=== PATIENT | male | born 1970 | race Caucasian/White ===

== ENCOUNTER 2020-07-01 10:53 | Outpatient (CLI) | payer OTHER ==
--- NOTE | 2020-07-01 11:22 | RAD ---
PA CHEST AND RIGHT RIBS 4 VIEWS: Date: 07/01/2020 HISTORY: Right-sided rib pain. FINDINGS: Heart size and mediastinum are within normal limits. Lungs are clear of any infiltrative process. I d o not appreciate any rib fractures. No lytic or blastic bone changes. IMPRESSION: Unremarkable right ribs. POS: ARCELIA
== END 2020-07-01 10:54 | disposition home or self-care (01) ==
LOC: BICRAD 10:53
PROVIDERS: ATTEND Family Medicine
DX: R07.81 Pleurodynia (principal)

== ENCOUNTER 2020-07-26 09:42 | Outpatient (CLI) | payer BC, OTHER ==
[2020-07-26 14:19] LABS: #Basophils 0.1 thou/uL (0.0-0.2); #Eosinphils 0.1 thou/uL (0.0-0.7); #Lymphocytes 2.6 thou/uL (1.20-3.40); #Monocytes 0.7 thou/uL (0.11-0.59); #Neutrophils 4.5 thou/uL (1.40-6.50); %Basophils 1.1 % (0.0-1.0); %Eosinophils 1.1 % (0.0-10.0); %Lymphocytes 32.5 % (21.0-51.0); %Monocytes 8.5 % (0.0-10.0); %Neutrophils 56.9 % (42.0-75.0); Hemoglobin 16.8 g/dL (14.0-18.0); Mean Corpuscular HGB CONC 33.9 g/dL (32.0-36.0); Mean Corpuscular Hemoglobin 30.3 pg (27.0-31.0); Mean Corpuscular Volume 89.6 fL (78.0-98.0); Mean Platelet Volume 9.7 fL (7.4-10.4); Platelet Count 194 thou/uL (130-400); RBC Distribution Width 11.1 % (11.5-14.5); Red Blood Cell (RBC) Count 5.53 mill/uL (4.70-6.10)
[2020-07-26 15:02] LABS: Anion Gap 16 mmol/L (10-20); BUN (Urea Nitrogen) 15 mg/dL (8.9-20.6); Calc. Creatinine Clearance 0 mL/min (70-130); Calcium 9.8 mg/dL (7.8-10.44); Carbon Dioxide 25 mmol/L (22-29); Chloride 102 mmol/L (98-107); Estimated GFR-MDRD 66; Glucose 99 mg/dL (70-105); Sodium 138 mmol/L (136-145)
--- NOTE | 2020-07-26 18:10 | EKG ---
Test Reason : Blood Pressure : / mmHG Vent. Rate : 069 BPM Atrial Rate : 069 BPM P-R Int : 164 ms QRS Dur : 082 ms QT Int : 372 ms P-R-T Axes : 066 025 059 degrees QTc Int : 398 ms Normal sinus rhythm with sinus arrhythmia Normal ECG No previous ECGs available Confirmed by DR. Luis MONTAGUE ([id number]) on 07/26/2020 6:10:31 PM Referred By: KESHA Confirmed By:DR. Luis MONTAGUE
[2020-07-27 15:36] LABS: SARS-CoV-2 MS2 Positive; SARS-CoV-2 N Gene Negative; SARS-CoV-2 S Gene Negative; SARS-CoV-2 by NAA Not Detected (NotDetected); SARS-CoV-2 orf1ab Negative
== END 2020-07-26 09:43 | disposition home or self-care (01) ==
LOC: LABBT 09:42
PROVIDERS: ATTEND Specialist
DX: Z01.812 Encounter for preprocedural laboratory examination (principal); K40.90 Unilateral inguinal hernia, without obstruction or gangrene, not specified as recurrent; Z20.828 Contact with and (suspected) exposure to other viral communicable diseases
CPT/HCPCS: 80048; 85025; 87635; 93005; 93010; U0003

== ENCOUNTER 2020-07-30 06:59 | Day surgery (SDC) | payer BC ==
[2020-07-27 11:20] VITALS: BMI 26.2
--- NOTE | 2020-07-29 09:48 | HP ---
HISTORY OF PRESENT ILLNESS: Keenan Arias, 49-year-old male patient, beverage sales consultant, Antony Stone, has noticed a bulge in his left groin for the last several weeks. He saw Dr. Chris Baron, who confirmed a left inguinal hernia. The patient denies having any pain, although he wants to repair this as he notes the bulge. On exam, he was found to have a right inguinal hernia protruding on Valsalva and plan is to repair the right side if appreciated during robot laparoscopic mesh repair of the left. In addition, the patient has perineal skin tags that we will remove. ALLERGIES: NONE. HABITS: Tobacco none. Alcohol rarely. MEDICATIONS: 1. Valacyclovir. 2. Pepcid. 3. Cialis. 4. Atorvastatin. PAST SURGICAL HISTORY: Noncontributory. PAST MEDICAL HISTORY: GERD. FAMILY HISTORY: Noncontributory. REVIEW OF SYSTEMS: Ten-point noncontributory. PHYSICAL EXAMINATION: VITAL SIGNS: Weight 213 pounds, height 6 feet 3 inches, 26 BMI. Blood pressure 136/87, heart rate 62, temperature 98 degrees. HEAD, EYES, EARS, NOSE, AND THROAT: Unremarkable. LUNGS: Clear to auscultation. CARDIAC: Regular rate and rhythm without murmur or gallop. ABDOMEN: Soft, nontender. EXTREMITIES: Unremarkable. GENITOURINARY: Perineal skin tags, three in number. Testicles normal. Left groin hernia on standing, enlarged on Valsalva. Right groin inguinal hernia appreciated on Valsalva, protruding through the external ring. ASSESSMENT AND PLAN: Large left inguinal hernia, probably early right inguinal hernia. Recommend robot mesh repair of left inguinal hernia and right inguinal hernia if verified robotically. Would also recommend excision of perineal skin tags. He understands risks and benefits and consents. Procedure explained to him. Job ID: [id number]
[2020-07-30] MEDS ORDERED: Gabapentin 300 MG CAP ONE (07:48)
[2020-07-30] MEDS ORDERED: Acetaminophen 500 MG TAB ONE (07:48)
[2020-07-30] MEDS ORDERED: Ketorolac Tromethamine 30 MG/ML VIAL ONE (07:48)
[2020-07-30] MEDS ORDERED: Midazolam HCl 2 mg/2 ml Vial ONE (08:42)
[2020-07-30] MEDS ORDERED: Fentanyl 250 MCG/5 ML VIAL ONE (09:06)
[2020-07-30] MEDS ORDERED: Bupivacaine/Epinephrine 0.25% 30 ML VIAL ONE ×2 (09:47→10:34)
[2020-07-30] MEDS ORDERED: PROPOFOL 200 MG/20 ML VIAL ONE (10:07)
[2020-07-30] MEDS ORDERED: Lidocaine 1% PF 5 ML VIAL ONE (10:07)
[2020-07-30] MEDS ORDERED: Ondansetron PF 4 MG/2 ML Vial ONE (10:07)
[2020-07-30] MEDS ORDERED: Glycopyrrolate 0.2 MG/ML 5 ML SYRINGE ONE (10:07)
[2020-07-30] MEDS ORDERED: Dexamethasone 20 MG/5 ML VIAL ONE (10:07)
[2020-07-30] MEDS ORDERED: Rocuronium Bromide 10 MG/ML (10ML VIAL) ONE (10:07)
--- NOTE | 2020-07-30 12:30 | OP ---
DATE OF PROCEDURE: 07/30/2020 PREOPERATIVE DIAGNOSES: Left inguinal hernia in the scrotum, perineal skin tag, possible right inguinal hernia. POSTOPERATIVE DIAGNOSES: bilateral inguinal hernias, left larger than right; and perineal skin tags. PROCEDURES PERFORMED: Robot laparoscopic large mesh repair of bilateral inguinal hernias, left larger than right, 3D Bard Max mesh used. Excision of perineal skin tags, 1.5 cm incision, Dermabond used. ANESTHESIA: General, local 0.25% Marcaine with epinephrine 30 mL. DESCRIPTION OF PROCEDURE: The patient was taken to the operating room, where under general anesthesia, abdomen was clipped of hair, prepared with ChloraPrep and draped in routine fashion. Local anesthetic was infiltrated in the skin and subcutaneous tissue about all port sites. Supraumbilical incision to left of midline, incision made, pneumoperitoneum to 15 mmHg obtained with Veress needle, replaced with an 11 balloon port and video laparoscope inserted. Bilateral far lateral incision was made and 8 mm ports placed. Robot was docked, and robot/laparoscopic inguinal hernia repair was undertaken. Large left inguinal hernia noted. Smaller right inguinal hernia noted. Peritoneal flaps dissected free bilaterally from the anterior superior iliac spine toward the midline on both sides, dissecting free Dilan ligament, visualizing the cord structures, dissecting the peritoneal sac off the cord structures for at least 8 cm and dissecting laterally. 3D Bard Max large mesh placed on the left and then on the right, securing it each side to Dilan ligament with 2-0 Vicryl suture and to the anterior abdominal wall lateral to the inferior epigastric vessels bilaterally. Once mesh was properly positioned and secured, the peritoneal flap closed with continuous suture of #3-0 V-Loc suture. Good hemostasis had been noted. All needles retrieved. Good hernia repair appreciated, pneumoperitoneum and all instruments were removed. Anterior rectus fascia left of midline, supraumbilical, approximated with 0 Vicryl, UR needle, and skin incision approximated with 4-0 Monocryl subdermal and [place] glue applied. The patient placed in a frog-leg position and he had a perineal tag just to the left of midline. This was prepared with alcohol and excised and closed with Dermabond. The patient tolerated the procedure well. Job ID: [id number]
[2020-07-30] MEDS ORDERED: HYDROcodone/Acetaminophen 5/325 mg Tablet ONE (13:57)
== END 2020-07-30 15:35 | disposition home or self-care (01) ==
LOC: SDC 06:59
PROVIDERS: ATTEND Specialist
PROC: 0YUA4JZ Supplement Bilateral Inguinal Region with Synthetic Substitute, Percutaneous Endoscopic Approach (ICD-10-PCS; principal; 2020-07-30)
PROC: 0HB9XZZ Excision of Perineum Skin, External Approach (ICD-10-PCS; principal; 2020-07-30)
DX: K40.90 Unilateral inguinal hernia, without obstruction or gangrene, not specified as recurrent (principal); K64.4 Residual hemorrhoidal skin tags; Z79.899 Other long term (current) drug therapy
CPT/HCPCS: 88304; C1781; J0690; J1100; J1885; J2250; J2405; J2704; J3010

== ENCOUNTER 2020-08-06 08:07 | Emergency (ER) | payer BC, OTHER ==
[2020-08-06] MEDS ORDERED: Ondansetron PF 4 MG/2 ML Vial ONE (08:24)
[2020-08-06] MEDS ORDERED: Morphine 4 MG/ML VIAL ONE (08:24)
[2020-08-06 08:44] LABS: #Basophils 0.1 thou/uL (0.0-0.2); #Eosinphils 0.2 thou/uL (0.0-0.7); #Monocytes 1.1 thou/uL (0.11-0.59); #Neutrophils 7.6 thou/uL (1.40-6.50); %Basophils 0.6 % (0.0-1.0); %Eosinophils 1.9 % (0.0-10.0); %Lymphocytes 18.1 % (21.0-51.0); %Monocytes 9.6 % (0.0-10.0); %Neutrophils 69.8 % (42.0-75.0); Hemoglobin 15.5 g/dL (14.0-18.0); Mean Corpuscular HGB CONC 33.7 g/dL (32.0-36.0); Mean Corpuscular Volume 88.9 fL (78.0-98.0); Mean Platelet Volume 8.7 fL (7.4-10.4); Platelet Count 226 thou/uL (130-400); RBC Distribution Width 10.9 % (11.5-14.5); Red Blood Cell (RBC) Count 5.16 mill/uL (4.70-6.10); White Blood Cell (WBC) Count 10.9 thou/uL (4.8-10.8)
--- NOTE | 2020-08-06 09:08 | CT ---
CT ABDOMEN WITH CONTRAST CT PELVIS WITH CONTRAST: DATE: 08/06/2020 HISTORY: 49-year-old male with postsurgical right groin pain and swelling COMPARISON: None TECHNIQUE: IV injection of iodinated contrast media: administered. Oral contrast media:Not administered FINDINGS: Normal appendix. Right kidney is asymmetrically significantly smaller than the left, probably on a developmental basis . It has normal, symmetric nephrographic enhancement, same as the left. No hydronephrosis. Liver, abdominal aorta, pancreas, left kidney, adrenals, and spleen, are normal. Mass with density of approximately 25 Hounsfield units, located just deep to the right lower quadrant anterior abdominal wall pelvic inlet, with surrounding fat stranding, measuring approximately 3 x 4.5 x 6.5 cm, is probably a recent postsurgical hematoma within the abdominal cavity. This is contigu ous with a more inferiorly located hematoma component measuring approximately 4.5 x 4.5 x 3.5 cm in the anterior extraperitoneal pelvis. This indents the right anterior surface of the urinary bladder. There is a similar such contralateral left-sided anterior extraperitoneal intrapelvic hematoma measur ing approximately 7 x 2.5 x 5.5 cm, indenting the left anterior surface of the urinary bladder. There is an anterior inferiorly migrating process arising from this left-sided hematoma, through the left inguinal canal, into a hematoma component in the left inguinal canal that measures approximately 3.5 x 4 x 5.5 cm. Contralateral right inguinal canal hematoma is smaller, 2.5 x 2.5 x 2.5 cm. Fat stranding and bilateral inguinal canals representing edema and/or blood. Small amount of subcutaneous emphysema in the superficial fat just medial to the right distal inguina l canal, consistent with recent surgery. No bowel loop contained within the inguinal hematomas. No small bowel dilation Small amount of dependent layering fluid in the posterior perirectal, presacral space, consistent wit h a small amount of blood. Small amount of blood in the intrapelvic cavity between bladder and rectum.. IMPRESSION: 1) postsurgical bilateral extraperitoneal intrapelvic hematomas, and bilateral inguinal canal hematom as, left larger than right. 2) small (probably on developmental basis) but functioning right kidney.
[2020-08-06] MEDS ORDERED: Iopamidol-370 76% 500 ML 1 ML ONE (09:36)
[2020-08-06 09:41] LABS: ALT (SGPT) 115 U/L (8-55); AST (SGOT) 40 U/L (5-34); Albumin 4.3 g/dL (3.5-5.0); Alkaline Phosphatase 91 U/L (40-110); Anion Gap 16 mmol/L (10-20); BUN (Urea Nitrogen) 16 mg/dL (8.9-20.6); Bilirubin, Total 1.3 mg/dL (0.2-1.2); Calc. Creatinine Clearance 0 mL/min (70-130); Calcium 9.5 mg/dL (7.8-10.44); Carbon Dioxide 22 mmol/L (22-29); Chloride 103 mmol/L (98-107); Estimated GFR-MDRD 76; Globulin 3.7 g/dL (2.4-3.5); Glucose 108 mg/dL (70-105); Potassium 4.8 mmol/L (3.5-5.1); Sodium 136 mmol/L (136-145)
== END 2020-08-06 10:30 | disposition home or self-care (01) ==
LOC: ERS 08:07
DX: N99.841 Postprocedural hematoma of a genitourinary system organ or structure following other procedure (principal); K21.9 Gastro-esophageal reflux disease without esophagitis
CPT/HCPCS: 74177; 80053; 85025; 96374; 96375; J2270; J2405; Q9967

== ENCOUNTER 2024-10-07 10:45 | Outpatient (CLI) | payer OTHER | END 2024-10-07 10:46 | disposition home or self-care (01) | LOC: BICRAD 10:45 | PROVIDERS: ATTEND Chiropractor | DX: R05.3 Chronic cough (principal) | CPT/HCPCS: 71046 ==